=== PATIENT | male | born 2000 | race Caucasian/White ===

== ENCOUNTER 2024-10-29 14:31 | Emergency (ER) | payer MEDICAID ==
[~2024-10-29] VITALS: Ht 167.6 cm; Wt 79.0 kg
[2024-10-29 15:12] VITALS: O2SAT 99
[2024-10-29 15:40] VITALS: BP 154/95; PULSE 103; RESP 16; TEMP 36.8; O2SAT 100
== END 2024-10-29 16:06 | disposition home or self-care (01) ==
LOC: ER 14:31
DX: Z00.00 Encounter for general adult medical examination without abnormal findings (principal)
CPT/HCPCS: 99282